=== PATIENT | female | born 1985 | race Caucasian/White ===

== ENCOUNTER 2018-10-11 23:44 | Inpatient (IN) | payer SELFPAY ==
[2018-10-12] MEDS ORDERED: Fentanyl 100 MCG/2 ML VIAL ONE (00:14)
[2018-10-12] MEDS ORDERED: Dexamethasone 4 mg/ml Vial ONE (00:15)
[2018-10-12] MEDS ORDERED: Ondansetron PF 4 MG/2 ML Vial ONE (00:25)
[2018-10-12] MEDS ORDERED: Fentanyl 100 MCG/2 ML VIAL SLOW IVP PRN ×2 (01:34→01:46)
[2018-10-12] MEDS ORDERED: Ondansetron ODT 4 MG TAB SL PRN (01:37)
[2018-10-12] MEDS ORDERED: Ondansetron PF 4 MG/2 ML Vial IVP PRN (01:37)
[2018-10-12] MEDS: cefTRIAXone\\ROCEPHIN 1 GM in Sodium Chloride 0.9% 100 ML IVPB SCH (01:56)
[2018-10-12] MEDS: Clindamycin/D5W 900 MG in Premix Bag 1 BAG IVPB SCH ×3 (01:56→19:35)
[2018-10-12] MEDS: Sodium Chloride 0.9% 1,000 ML IV SCH ×3 (01:56→19:48)
[2018-10-12] MEDS: Acetaminophen 325 MG TAB PO PRN ×3 (02:13→13:09)
--- NOTE | 2018-10-12 02:48 | HP ---
PRIMARY CARE DOCTOR: Dr. Maddie Howell. CODE STATUS: Full code. TIME OF EVALUATION: 1 a.m. CHIEF COMPLAINT: Facial swelling. HISTORY OF PRESENT ILLNESS: A 33-year-old female patient with no significant past medical history, came to the hospital after having right-sided facial swelling that is severe with involvement of external part of the eye. She reported that over the past 3 days, symptoms have been gradually worsening, associated with severe pain and swelling and bad taste in the mouth. Case was discussed with Oral Surgery. The patient will be placed in the surgical floor with antibiotics and some steroids for the swelling and the surgeon will see the patient. REVIEW OF SYSTEMS: CONSTITUTIONAL: The patient has subjective fever and chills, generalized weakness. RESPIRATORY: No cough, sputum production, or shortness of breath. CARDIOVASCULAR: No chest pain or palpitation. GASTROINTESTINAL: No nausea. No vomiting, diarrhea or abdominal pain. HEAD PORTER: No dizziness, headache or feeling lightheaded. GENITOURINARY: No burning on urination. EXTREMITIES: No leg swellings HEENT: The patient has right-sided facial swelling that is severe with movement of the periorbital area on the right side. All other systems were reviewed and negative except for the findings mentioned above. PAST MEDICAL HISTORY: Negative for any medical condition. FAMILY HISTORY: Reviewed and noncontributory to current presentation. SURGICAL HISTORY: Endometriosis. PSYCHIATRIC HISTORY: Includes anxiety. SOCIAL HISTORY: The patient denies marijuana use. No drug use except for smoking cigarettes half a pack per day. ALLERGIES: NO KNOWN DRUG ALLERGIES. REPORTED MEDICATIONS: None. PHYSICAL EXAMINATION: VITAL SIGNS: On presentation, blood pressure 103/77, heart rate 96, respiratory rate 18, temperature 98.3, oxygen saturation was 100 on room air. GENERAL: The patient is alert and oriented, in no acute distress. HEENT: Eyes, the right side is swollen with swelling on the complete right side of the face, redness, tenderness, very sensitive to touch. Moist oral mucosa. Anicteric. No JVD. RESPIRATORY: Bilateral air entry. No rales. No wheezes. Symmetric expansion. CARDIOVASCULAR: Normal rate and regular rhythm. No murmurs. No gallop. No edema. ABDOMEN: Soft. Normal bowel sounds. MUSCULOSKELETAL: Baseline range of motion and strength. SKIN: Warm and intact. No pallor. No rash. No redness. Peripheral pulses are present. Capillary refill seems to be intact. NEUROLOGIC: No evidence of any new focal weakness. Cranial nerves seems to be intact. PSYCH: The patient in good mood. No anxiety. Optimal judgment. DIAGNOSTIC DATA: CAT scan was done and show possible small abscess adjacent to the anterior right maxilla. LABORATORY DATA: Reviewed from the transfer chart. White blood count 13, hemoglobin 12, MCV 66, platelet count 204. Chemistry; sodium 138, potassium 3.8, chloride 101, carbon dioxide 24, anion gap 16.8, glucose 114, calcium 9.3, albumin 4.5, bilirubin 0.8, alkaline phosphatase 88, total protein 7.7. LFTs were negative. Lactic acid 1.1. ASSESSMENT AND PLAN: The patient will be placed in the hospital with following medical problems. 1. Sepsis. The patient is tachycardic. The patient has had fever episodes. She has right facial abscess and cellulitis. The patient is started on antibiotics. We will follow cultures, deep venous thrombosis. 2. Right-sided facial abscess and cellulitis. Oral surgeon will be consulted, who will see the patient in the morning. We will follow recommendations. 3. Deep venous thrombosis prophylaxis. 4. Intractable pain. The patient needing opioid medication for optimal control, this place the patient at high risk of complication from treatment. Job ID: [id number]
[2018-10-12 02:57] VITALS: BMI 24.7
[2018-10-12] MEDS ORDERED: Sodium Chloride 0.9% 1,000 ML IV SCH (04:45)
[2018-10-12 05:47] LABS: Anion Gap 11 mmol/L (10-20); BUN (Urea Nitrogen) 5 mg/dL (7.0-18.7); Calc. Creatinine Clearance 152 mL/min (70-130); Calcium 8.9 mg/dL (7.8-10.44); Carbon Dioxide 23 mmol/L (22-29); Chloride 106 mmol/L (98-107); Estimated GFR-MDRD Greater than 90; Glucose 134 mg/dL (70-105); Potassium 4.2 mmol/L (3.5-5.1); Sodium 136 mmol/L (136-145)
[2018-10-12] MEDS ORDERED: Ketorolac Tromethamine 30 MG/ML VIAL IVP SCH (06:00)
[2018-10-12 06:10] LABS: #Lymphocytes 0.4 thou/uL (1.20-3.40); #Monocytes 0.1 thou/uL (0.11-0.59); #Neutrophils 9.2 thou/uL (1.40-6.50); %Eosinophils 0.1 % (0.0-10.0); %Lymphocytes 3.9 % (21.0-51.0); %Monocytes 0.9 % (0.0-10.0); %Neutrophils 95.2 % (42.0-75.0); Hemoglobin 10.7 g/dL (12.0-16.0); Hypochromia SLIGHT = 6-15 cells (100X) (0-5/hpf); MDiff Complete? YES; Mean Corpuscular HGB CONC 31.7 g/dL (32.0-36.0); Mean Corpuscular Hemoglobin 21.4 pg (27.0-31.0); Mean Corpuscular Volume 67.4 fL (78.0-98.0); Mean Platelet Volume 10.4 fL (7.4-10.4); Microcytosis SLIGHT = 6-15 cells (100X) (0-5/hpf); Platelet Count 172 thou/uL (130-400); RBC Distribution Width 13.2 % (11.5-14.5); Red Blood Cell (RBC) Count 5.01 mill/uL (4.20-5.40); White Blood Cell (WBC) Count 9.6 thou/uL (4.8-10.8)
[2018-10-12] MEDS: Enoxaparin Sodium 40 MG/0.4 ML SYRINGE SC SCH (08:56)
[2018-10-12] MEDS ORDERED: Dexamethasone 10 MG in Sodium Chloride 0.9% 50 ML IVPB SCH (09:00)
--- NOTE | 2018-10-12 13:16 | PDOC.PN ---
- Subjective Encounter Start Date: 10/12/18 Encounter Start Time: 07:45 Subjective: face feels better this morning but still swollen -: at bedside - Objective Resuscitation Status - Order Detail: 10/12/18 01:43 Resuscitation Status Routine Resuscitation Status: FULL: Full Resuscitation MAR Reviewed: Yes Vital Signs & Weight: Vital Signs (12 hours) Temp Pulse Resp BP Pulse Ox 10/12/18 11:14 97.6 F 66 16 91/58 L 93 L 10/12/18 10:45 82 100/66 10/12/18 08:15 62 91/58 L 10/12/18 07:29 97.8 F 61 14 89/56 L 98 10/12/18 04:21 98.1 F 98 16 90/58 L 97 10/12/18 01:32 97.8 F 98 20 98/66 98 Weight Weight 148 lb 9.6 oz I&O: 10/11/18 10/12/18 10/13/18 06:59 06:59 06:59 Intake Total 1500 Balance 1500 Result Diagrams: 10/12/18 05:04 10/12/18 05:04 Phys Exam - Physical Examination HEENT: PERRLA right facial edema Neck: no JVD, supple Respiratory: no wheezing, no rales Cardiovascular: RRR, no significant murmur Gastrointestinal: soft, non-tender, positive bowel sounds Musculoskeletal: no edema, pulses present Neurological: non-focal, moves all 4 limbs Psychiatric: normal affect, A&O x 3 Dx/Plan (1) right facial cellulitis Status: Acute (2) Periodontal abscess Code(s): K05.219 - AGGRESSIVE PERIODONTITIS, LOCALIZED, UNSPECIFIED SEVERITY Status: Suspected (3) Iron deficiency anemia Code(s): D50.9 - IRON DEFICIENCY ANEMIA, UNSPECIFIED Status: Chronic Qualifiers: Iron deficiency anemia type: unspecified iron deficiency Qualified Code(s) : D50.9 - Iron deficiency anemia, unspecified - Plan is on ceftriaxone and clindamycin, steroids -: gentle iv fluids -: awaiting surgical consult (), is npo -: motrin tid, ultram prn, may dc ceftriaxone if ok with ofms * . Review of Systems - Medications/Allergies Allergies/Adverse Reactions: Allergies Allergy/AdvReac Type Severity Reaction Status Date / Time No Known Drug Allergies Allergy Verified 10/12/18 07:30 Medications: Current Medications Acetaminophen (Tylenol) 650 mg PO Q4H PRN PRN Reason: Headache/Fever/Mild Pain (1-3) Last Admin: 10/12/18 13:09 Dose: 650 mg Enoxaparin Sodium (Lovenox) 40 mg SC 0900 [facility] Last Admin: 10/12/18 08:56 Dose: Not Given Clindamycin Phosphate/Dextrose (900 mg/ Device) 50 mls @ 100 mls/hr IVPB 0200, 1000,1800 [facility] Stop: 10/17/18 12:44 Last Admin: 10/12/18 09:35 Dose: 50 mls Ceftriaxone Sodium 1 gm/ (Sodium Chloride) 100 mls @ 200 mls/hr IVPB Q24HR [facility] Last Admin: 10/12/18 01:56 Dose: 100 mls Ibuprofen (Motrin) 400 mg PO TID [place]
[2018-10-12] MEDS ORDERED: traMADol HCl 50 MG TAB PO PRN (13:19)
[2018-10-12] MEDS: Ibuprofen 200 MG TAB PO SCH ×2 (14:31→19:59)
[2018-10-12] MEDS ORDERED: HYDROcodone/Acetaminophen 5/325 mg Tablet PO PRN (15:10)
[2018-10-12] MEDS: HYDROcodone/Acetaminophen 5/325 mg Tablet PO PRN ×2 (15:13→21:09)
[2018-10-12] MEDS: Morphine 2 MG/ML SYRINGE SLOW IVP PRN (19:41)
--- NOTE | 2018-10-13 00:04 | CON ---
DATE OF CONSULTATION: 10/12/2018 CONSULTING PHYSICIAN: Sunita Mcleod Team. CHIEF COMPLAINT: Dental pain and right midface swelling. HISTORY OF PRESENT ILLNESS: This is a 33-year-old female with recent onset of pain in the tooth #6 region, which subsequently evolved into right mid face swelling. She presented to [facility] originally and was discharged on p.o. antibiotics, but the patient failed to fill that prescription and returned to [facility] yesterday with increasing facial swelling. She was transferred to [facility] for a higher level of care and I was consulted for evaluation and management of her odontogenic infection. PAST MEDICAL HISTORY: Negative. HOME MEDICATIONS: None. PAST SURGICAL HISTORY: Hysterectomy. ALLERGIES: NO KNOWN DRUG ALLERGIES. SOCIAL HISTORY: Half a pack per day cigarettes. Denies alcohol or drugs. REVIEW OF SYSTEMS: Positive for a pain and swelling in the right mid face and oral cavity region. The patient also has right periorbital edema, but denies changes in vision or other ocular complaints. PHYSICAL EXAMINATION: VITAL SIGNS: Blood pressure 91/58, heart rate 66, 93-98 percent oxygenation on room air, temperature 97.6. GENERAL: Alert, oriented x3, no apparent distress. HEAD AND NECK: The patient has [id number] right midface edema with extension up to the inferior aspect of the periorbital region. The patient is able to open her eyes and extraocular movements are intact. Visual acuity is grossly intact. Pupils are equally round and reactive to light and accommodation. The patient does not have any signs of exophthalmos. Intraoral exam shows a rampant widespread decay throughout the dentition. The patient has vestibular fullness and fluctuance in the tooth#6 region and tooth #6 is retained, carious, root. Other than the right anterior maxilla, there are no other areas of soft tissue swelling in the oral cavity. The floor of the mouth is soft. Oropharynx is within normal limits. LABORATORY DATA: White blood cell count 9.6, hemoglobin 10.7, platelets 172. Chemistry shows elevated glucose of 134. CT scan of the face from the outside hospital shows a canine space abscess and right midface cellulitis consistent with the physical exam associated with carious and decayed tooth #6. As discussed on the physical examination, the radiographic exam is also positive for widespread dental decay throughout the dentition. ASSESSMENT: 1. Carious, infected tooth #6. 2. Right midface cellulitis and vestibular with possible canine space abscess. PLAN: 1. The patient will be kept n.p.o. after midnight tonight and taken to the operating room tomorrow for removal of the etiologic tooth number #6 and incision and drainage of the right anterior maxillary vestibule and canine spaces. 2. IV antibiotics should be continued at this time as significant improvements appear to have been made thus far. The 3 doses of Decadron can also be completed. The patient should do Peridex oral rinses twice daily. 3. The patient can have a regular diet until midnight tonight when she had to go back to n.p.o. status. Job ID: [id number]
[2018-10-13] MEDS: Clindamycin/D5W 900 MG in Premix Bag 1 BAG IVPB SCH ×3 (01:20→21:03)
[2018-10-13] MEDS: cefTRIAXone\\ROCEPHIN 1 GM in Sodium Chloride 0.9% 100 ML IVPB SCH (01:21)
[2018-10-13] MEDS: Morphine 2 MG/ML SYRINGE SLOW IVP PRN ×5 (01:21→23:13)
[2018-10-13] MEDS: HYDROcodone/Acetaminophen 5/325 mg Tablet PO PRN ×3 (05:36→23:14)
[2018-10-13] MEDS: Ibuprofen 200 MG TAB PO SCH ×3 (08:37→21:02)
[2018-10-13] MEDS: Enoxaparin Sodium 40 MG/0.4 ML SYRINGE SC SCH (08:37)
[2018-10-13] MEDS ORDERED: Nicotine 14 MG PATCH TOP SCH ×2 (09:00→21:00)
[2018-10-13] MEDS ORDERED: traMADol HCl 50 MG TAB PO PRN ×2 (10:50)
[2018-10-13] MEDS: Ketorolac Tromethamine 30 MG/ML VIAL IVP SCH ×2 (11:16→16:26)
[2018-10-13] MEDS: Sodium Chloride 0.9% 1,000 ML IV SCH (13:17)
--- NOTE | 2018-10-13 13:43 | PDOC.PN ---
- Subjective Encounter Start Date: 10/13/18 Encounter Start Time: 10:00 Subjective: c/o more pain over right half of her face -: no trouble opening mouth -: is a bit emotional/worried - Objective Resuscitation Status - Order Detail: 10/12/18 01:43 Resuscitation Status Routine Resuscitation Status: FULL: Full Resuscitation MAR Reviewed: Yes Vital Signs & Weight: Vital Signs (12 hours) Temp Pulse Resp BP Pulse Ox 10/13/18 11:10 97.5 F L 68 16 96/67 98 10/13/18 07:22 97.7 F 66 18 96/61 99 10/13/18 04:38 98.1 F 64 18 95/58 L 96 Weight Weight 148 lb 9.6 oz I&O: 10/12/18 10/13/18 10/14/18 06:59 06:59 06:59 Intake Total 4600 Balance 4600 Result Diagrams: 10/12/18 05:04 10/12/18 05:04 Phys Exam - Physical Examination HEENT: PERRLA, sclera anicteric right facial edema+ Neck: no JVD, supple Respiratory: no wheezing, no rales Cardiovascular: RRR, no significant murmur Gastrointestinal: soft, non-tender, positive bowel sounds Musculoskeletal: no edema, pulses present Neurological: non-focal, moves all 4 limbs Psychiatric: A&O x 3 Dx/Plan (1) right facial cellulitis Status: Acute (2) Periodontal abscess Code(s): K05.219 - AGGRESSIVE PERIODONTITIS, LOCALIZED, UNSPECIFIED SEVERITY Status: Suspected (3) Iron deficiency anemia Code(s): D50.9 - IRON DEFICIENCY ANEMIA, UNSPECIFIED Status: Chronic Qualifiers: Iron deficiency anemia type: unspecified iron deficiency Qualified Code(s) : D50.9 - Iron deficiency anemia, unspecified - Plan for likely extraction of tooth and debridement this evening -: is on ceftriaxone and clindamycin -: motrin tid, morphine, toradol, norco, ultram -: watch for airway with above -: dc plan per surgery advice * . Review of Systems - Medications/Allergies Allergies/Adverse Reactions: Allergies Allergy/AdvReac Type Severity Reaction Status Date / Time No Known Drug Allergies Allergy Verified 10/12/18 07:30 Medications: Current Medications Acetaminophen (Tylenol) 650 mg PO Q4H PRN PRN Reason: Headache/Fever/Mild Pain (1-3) Last Admin: 10/12/18 13:09 Dose: 650 mg Hydrocodone Bitart/Acetaminophen ([place] 5/325) 1 tab PO Q6H PRN PRN Reason: Moderate Pain (4-6) Hydrocodone Bitart/Acetaminophen ([place] 5/325) 2 tab PO Q6H PRN PRN Reason: Severe Pain (7-10) Last Admin: 10/13/18 11:15 Dose: 2 tab Enoxaparin Sodium (Lovenox) 40 mg SC 0900 [facility] Last Admin: 10/13/18 08:37 Dose: 40 mg Clindamycin Phosphate/Dextrose (900 mg/ Device) 50 mls @ 100 mls/hr IVPB 0200, 1000,1800 [facility] Stop: 10/17/18 12:44 Last Admin: 10/13/18 10:04 Dose: 50 mls Ceftriaxone Sodium 1 gm/ (Sodium Chloride) 100 mls @ 200 mls/hr IVPB Q24HR [facility] Last Admin: 10/13/18 01:21 Dose: 100 mls Sodium Chloride (Normal Saline 0.9%) 1,000 mls @ 50 mls/hr IV .Q20H [facility] Last Admin: 10/13/18 13:17 Dose: Not Given Ibuprofen (Motrin) 400 mg PO TID [facility] Last Admin: 10/13/18 08:37 Dose: 400 mg Ketorolac Tromethamine (Toradol) 15 mg IVP 1100,1500 [facility] Stop: 10/13/18 16:00 Last Admin: 10/13/18 11:16 Dose: 15 mg Morphine Sulfate (Morphine) 2 mg SLOW IVP Q4H PRN PRN Reason: Chest Pain/BP Elevations Last Admin: 10/13/18 10:03 Dose: 2 mg Nicotine (Nicoderm Patch) 14 mg TOP DAILY [facility] Pantoprazole Sodium (Protonix) 40 mg PO DAILY [facility] Last Admin: 10/13/18 08:37 Dose: 40 mg Sodium Chloride (Flush - Normal Saline) 10 ml IVF PRN PRN PRN Reason: Saline Flush Tramadol HCl (Ultram) 50 mg PO Q6H PRN PRN Reason: Mild Pain (1-3) Tramadol HCl (Ultram) 100 mg PO Q6H PRN PRN Reason: Moderate Pain (4-6)
[2018-10-13] MEDS ORDERED: Morphine 4 MG/ML VIAL ONE (16:50)
[2018-10-13] MEDS ORDERED: Bacitracin Zinc Ointment 30 gm TUBE ONE (17:02)
[2018-10-13] MEDS ORDERED: Sodium Chloride 0.9% 10 ML ONE (17:02)
[2018-10-13] MEDS ORDERED: Chlorhexidine Gluconate 15 ML UDCUP SSP ONE (17:02)
[2018-10-13] MEDS ORDERED: Hydrocortisone 1% Cream 30 GM TUBE ONE (17:08)
[2018-10-13] MEDS ORDERED: Lidocaine 1% w/Epinephrine 1:100K 20 ML VIAL ONE (17:09)
[2018-10-13] MEDS ORDERED: Midazolam HCl 2 mg/2 ml Vial ONE (17:30)
[2018-10-13] MEDS ORDERED: Fentanyl 100 MCG/2 ML VIAL ONE ×4 (17:30→19:23)
[2018-10-13] MEDS ORDERED: Clindamycin/D5W 900 mg/50 ml Premix Bag ONE (17:39)
[2018-10-13] MEDS ORDERED: Bupivacaine/Epinephrine 0.25% 30 ML VIAL ONE (17:57)
[2018-10-13] MEDS ORDERED: Bupivacaine HCl 0.5%/Epinephrine 1:200,000/PF 30 ml Vial ONE (17:57)
[2018-10-13] MEDS ORDERED: Promethazine HCl 25 MG/ML VIAL SLOW IVP PRN (18:19)
[2018-10-13] MEDS ORDERED: Promethazine HCl 25 MG/ML VIAL IM PRN (18:19)
[2018-10-13] MEDS ORDERED: Ondansetron HCl/PF 4 MG/2 ML Vial IVP PRN (18:19)
[2018-10-13] MEDS: Chlorhexidine Gluconate 15 ML UDCUP SSP SCH (21:02)
[2018-10-14] MEDS: cefTRIAXone\\ROCEPHIN 1 GM in Sodium Chloride 0.9% 100 ML IVPB SCH (01:03)
[2018-10-14] MEDS: Acetaminophen 325 MG TAB PO PRN (01:03)
[2018-10-14] MEDS: Clindamycin/D5W 900 MG in Premix Bag 1 BAG IVPB SCH ×2 (01:03→09:17)
[2018-10-14] MEDS: Sodium Chloride 0.9% 1,000 ML IV SCH (06:29)
[2018-10-14] MEDS ORDERED: Sodium Chloride 0.9% 1,000 ML IV SCH (07:30)
[2018-10-14 07:34] LABS: #Monocytes 0.5 thou/uL (0.11-0.59); #Neutrophils 8.1 thou/uL (1.40-6.50); %Basophils 0.3 % (0.0-1.0); %Eosinophils 0.2 % (0.0-10.0); %Lymphocytes 10.5 % (21.0-51.0); %Monocytes 4.9 % (0.0-10.0); %Neutrophils 84.1 % (42.0-75.0); Hemoglobin 10.8 g/dL (12.0-16.0); Mean Corpuscular HGB CONC 32.6 g/dL (32.0-36.0); Mean Corpuscular Volume 67.6 fL (78.0-98.0); Mean Platelet Volume 9.9 fL (7.4-10.4); Platelet Count 168 thou/uL (130-400); RBC Distribution Width 13.4 % (11.5-14.5); White Blood Cell (WBC) Count 9.7 thou/uL (4.8-10.8)
[2018-10-14 07:57] LABS: ALT (SGPT) 33 U/L (8-55); AST (SGOT) 23 U/L (5-34); Albumin 3.4 g/dL (3.5-5.0); Alkaline Phosphatase 63 U/L (40-150); Anion Gap 11 mmol/L (10-20); BUN (Urea Nitrogen) 8 mg/dL (7.0-18.7); Bilirubin, Total 0.3 mg/dL (0.2-1.2); Calc. Creatinine Clearance 161 mL/min (70-130); Calcium 8.7 mg/dL (7.8-10.44); Carbon Dioxide 22 mmol/L (22-29); Chloride 107 mmol/L (98-107); Estimated GFR-MDRD Greater than 90; Globulin 2.4 g/dL (2.4-3.5); Glucose 106 mg/dL (70-105); Potassium 4.3 mmol/L (3.5-5.1); Protein, Total 5.8 g/dL (6.0-8.3); Sodium 136 mmol/L (136-145)
[2018-10-14] MEDS: HYDROcodone/Acetaminophen 5/325 mg Tablet PO PRN (08:08)
[2018-10-14] MEDS: Ibuprofen 200 MG TAB PO SCH (08:08)
[2018-10-14] MEDS: Enoxaparin Sodium 40 MG/0.4 ML SYRINGE SC SCH (08:09)
[2018-10-14] MEDS: Chlorhexidine Gluconate 15 ML UDCUP SSP SCH (08:09)
[2018-10-14] MEDS: Morphine 2 MG/ML SYRINGE SLOW IVP PRN ×2 (08:16→12:36)
[2018-10-14 11:22] VITALS: BP 101/68; TEMP 97.9
--- NOTE | 2018-10-14 12:56 | DIS ---
DATE OF ADMISSION: 10/12/2018 DATE OF DISCHARGE: 10/14/2018 PRIMARY CARE PHYSICIAN: Dr. Maddie Howell. DISCHARGE DISPOSITION: Home. PRIMARY DISCHARGE DIAGNOSES: Cellulitis of face, infected tooth. SECONDARY DISCHARGE DIAGNOSIS: Iron deficiency anemia. PRIMARY PROCEDURE/OPERATION: Infected teeth removed by Dr. Kwadwo Figueredo. RADIOLOGICAL INVESTIGATION: None. SIGNIFICANT LABORATORY DATA: Hemoglobin 10.8, creatinine 0.54, sodium 136, potassium 4.3, chloride 107, BUN 8, calcium 8.7, AST 23, ALT 33, alkaline phosphatase 63, albumin 3.4. WBC 9.7 and platelet 168. DISCHARGE MEDICATIONS: 1. Clindamycin 150 mg p.o. q.6 hourly for 7 days. 2. Tylenol No. 3 one or two tablets q.6 hourly p.r.n. 3. Chlorhexidine 15 mL ssp b.i.d. 4. Ferrous sulfate 325 mg p.o. daily. CONTRAINDICATION: None. CODE STATUS: Full code. INPATIENT JOURNEYMAN MOLDER: Dr. Kwadwo Figueredo. TEST RESULT PENDING ON DISCHARGE: None. ALLERGIES: NO KNOWN DRUG ALLERGIES. DISCHARGE PLAN: Posthospital, the patient will follow up with primary care physician and Dr. Kwadwo Figueredo as instructed. HOSPITAL COURSE: A 33-year-old female, who has poor dental hygiene. She was having infected teeth and subsequently, the patient developed a cellulitis of face. She was admitted to the hospital and she was treated with Rocephin and clindamycin. Oral surgeon was consulted and he removed infected teeth. The patient's pain was controlled with pain medication. The patient received appropriate IV antibiotic therapy with improvement in her cellulitis of face. We have provided oral hygiene as well as smoking cessation counseling given. The patient does have iron deficiency anemia that is why ferrous sulfate was prescribed and advised to follow up on outpatient basis with primary care physician. At this point, the patient's cellulitis had significant improvement. The patient wants to go home today. We changed to oral antibiotic therapy. The patient is advised to follow up with oral surgeon for pain control, I have prescribed Tylenol No.3 30 pills. PHYSICAL EXAMINATION: I have seen and examined the patient at bedside today. VITAL SIGNS: Currently, temperature 97.9, pulse 74, respiratory rate of 14, saturation 100% on room air, blood pressure 101/68, weight of 140 pounds. GENERAL: The patient is currently alert and awake, no obvious acute distress. HEENT: Head; normocephalic, atraumatic. Eyes; pupils round, reactive to light. Extraocular muscle intact. ENT; oropharynx within normal limits. LUNGS: Clear without any rhonchi or rales. CARDIAC: S1, S2 regular. No murmur. ABDOMEN: Soft and benign. EXTREMITIES: No edema. NEUROLOGIC: Nonfocal examination. Overall, the patient is medically stable for discharge today. Job ID: [id number]
--- NOTE | 2018-10-14 14:31 | OP ---
DATE OF PROCEDURE: 10/13/2018 PREOPERATIVE DIAGNOSES: 1. Infected tooth 6. 2. Right maxillary vestibular abscess. POSTOPERATIVE DIAGNOSES: 1. Infected tooth 6. 2. Right maxillary vestibular abscess. PROCEDURES PERFORMED: 1. Surgical removal of tooth 6. 2. Incision and drainage of right maxillary vestibular abscess. INDICATIONS: Ms. Allen originally presented to an outside hospital on 2 separate occasions. On the first occasion, the patient was discharged on p.o. antibiotics for a right maxillary infection associated with tooth #6. The patient did not fill those antibiotics and return to the hospital in short order with progressive swelling of the right mid face region and on CT scan, which shown to have an abscess facial to the root of tooth #6. She was transferred to [place] for higher level of care and I was consulted for evaluation and management. PROCEDURE IN DETAIL: The patient was identified in the preoperative holding and all questions were answered. The patient was then taken to the operating room and transferred to the operating room table in a supine position and intubated via the oral route by the Anesthesia Service. After induction of a general anesthetic. A surgical time-out was performed at this time. The patient was prepped and draped in a manner consistent with this procedure. The oral cavity and oropharynx were suctioned free of secretions and debris and a throat pack was placed. The oral cavity was prepped with Peridex oral rinse and a toothbrush. Local anesthetic was delivered to the right maxillary region using 0.5% bupivacaine with epinephrine. A vestibular incision was made with a 15 blade and immediate moderate purulence was obtained from the vestibular abscess. A periosteal elevator was used to create a subperiosteal dissection up into the right canine space to decompress the entire abscess and an area of infection. The abscess cavity was irrigated copiously with saline infused with bacitracin. A periosteal elevator was then used to separate soft tissue attachment from tooth #6 and tooth #6 was grasped with forceps and removed. After removal, the socket of tooth #6 was curetted vigorously and irrigated copiously as well with the bacitracin-infused saline. The incision and drainage site was once again opened to ensure that the abscess was entirely decompressed and there was no further purulence noted. The abscess cavity was irrigated one last time with bacitracin-infused saline. The oral cavity and oropharynx were suctioned free of fluids and debris. The throat pack was removed. A gauze pressure pack was placed over the site of the extraction and incision and drainage site with an extraoral tail maintained and the patient was turned over to anesthesia for emergence and extubation which ensued without complication. INTRAVENOUS FLUIDS: Please see anesthetic record. ESTIMATED BLOOD LOSS: Minimal. SPECIMENS: None. DRAINS: None. IMPLANTS: None. FINDINGS: Significant purulence from the right anterior maxillary vestibule facial to tooth #6. COMPLICATIONS: None. DISPOSITION: The patient was extubated and transferred to the recovery room in good condition. Job ID: [id number]
== END 2018-10-14 12:50 | disposition home or self-care (01) | DRG 603 ==
LOC: ERS 23:44 → SURG A 10-12 00:44 → OBSVTOIN 10-12 00:44
PROVIDERS: ADMIT Hospitalist; ATTEND Hospitalist
PROC: 0N9R0ZZ Drainage of Maxilla, Open Approach (ICD-10-PCS; principal; 2018-10-13)
PROC: 0CDWXZ0 Extraction of Upper Tooth, Single, External Approach (ICD-10-PCS; 2018-10-13)
DX: L03.211 Cellulitis of face (principal); K05.219 Aggressive periodontitis, localized, unspecified severity; F41.9 Anxiety disorder, unspecified; D50.9 Iron deficiency anemia, unspecified; F17.210 Nicotine dependence, cigarettes, uncomplicated; M27.2 Inflammatory conditions of jaws; Z90.710 Acquired absence of both cervix and uterus; Z71.6 Tobacco abuse counseling
CPT/HCPCS: 36415; 80048; 80053; 85025; 90471; 90732; 96374; 96375; G0009; J0670; J0696; J1100; J1650; J1885; J2001; J2250; J2270; J2405; J3010; J3490; J7050